=== PATIENT | female | born 1970 | race Caucasian/White ===

== ENCOUNTER 2018-07-29 06:01 | Day surgery (SDC) | payer OTHER ==
[2018-07-28 12:30] VITALS: BMI 33.2
[2018-07-29] VITALS (19 sets, daily range): BP systolic 90–139; BP diastolic 53–83; PULSE 64–101; RESP 12–24; Ht 157.5 cm; Wt 82.3 kg
[~2018-07-29] VITALS: Ht 157.5 cm; Wt 82.3 kg
[~2018-07-29 06:01] MED LIST: CEFAZOLIN 1 GM/50 ML (PMX) 50 ML IVPB ONE
--- NOTE | 2018-07-29 07:11 | HPN ---
Date/Time of Note Date/Time of Note DATE: 07/29/18 TIME: 07:10 Interval H&P Admission Note Pt. seen H&P reviewed: No system changes OSCAR SANTOS DPM Jul 29, 2018 07:11
--- NOTE | 2018-07-29 07:21 | HPN ---
Date/Time of Note Date/Time of Note DATE: 07/29/18 TIME: 07:21 Interval H&P Admission Note Pt. seen H&P reviewed: No system changes OSCAR SANTOS DPM Jul 29, 2018 07:21
[2018-07-29] MEDS ORDERED: LIDOCAINE 2% (MDV) 20 ML INJ ONE (07:30)
[2018-07-29] MEDS ORDERED: BUPIVACAINE 0.5% (SDV) 30 ML INJ ONE (07:30)
[2018-07-29] MEDS ORDERED: DEXAMETHASONE 4 MG/ML 1 ML INJ ONE (07:30)
--- NOTE | 2018-07-29 07:37 | PREAC ---
Date/Time of Note Date/Time of Note DATE: 07/29/18 TIME: 07:33 Anesthesia Eval and Record Evaluation Time Pre-Procedure Interview DATE: 07/29/18 TIME: 07:33 Age 48 Sex female NPO: 8 hrs Preoperative diagnosis Left Foot Bunion Planned procedure Left Foot Bunionectomy Past Medical History Past Medical History: Includes Cardio: HTN Pulm: Asthma GI: Obesity Psych: Depression, Anxiety : : (4), Para: (3), Other (s/p Hysterectomy) Surgery & Anesthesia Issues No known issue Meds Anticoagulation: No Beta Alebrto within 24 hr: No Reason Beta Alberto not given: Pt. not on B-Alberto Meds reviewed: Yes Allergies Coded Allergies: carisoprodol (Verified Allergy, Mild, rash, 07/28/18) Allergies Reviewed: Yes Labs/Studies Labs Reviewed: Reviewed by anesthesiologist Result Diagram: 07/29/1838 07/29/1838 Laboratory Tests 07/29/18 06:38 test: N/A Studies: ECG (n/a), CXR (n/a) Pre-procedure Exam Last vitals Vital Signs Date Temp Pulse Resp B/P (MAP) Pulse Ox O2 O2 Flow FiO2 Time Delivery Rate 07/29/18 98.2 101 20 133/83 99 Room Air 06:30 (100) Airway: Adequate mouth opening, Adequate thyromental dist Mallampati: Mallampati II Teeth: Normal Lung: Normal Heart: Normal ASA Physical Status ASA physical status: 2 Emergency: None Planned Anesthetic General/MAC: LMA, MAC Planned Pain Management Parenteral pain med Pre-operative Attestations Prior to commencing anesthesia and surgery, the patient was re-evaluated, there was verification of: *The patient's identity *The results of appropriate recent lab work and preoperative vital signs *The above evaluation not changing prior to induction *Anesthetic plan, risk benefits, alternative and complications discussed with patient/family; questions answered; patient/family understands, accepts and wishes to proceed. HUEY DRUMMOND MD Jul 29, 2018 07:37
[2018-07-29] MEDS ORDERED: PROPOFOL 20 ML ONE (07:46)
[2018-07-29] MEDS ORDERED: CEFAZOLIN 1 GM INJ ONE (07:46)
[2018-07-29] MEDS ORDERED: MIDAZOLAM 1 MG/ML 2 ML INJ ONE (07:47)
[2018-07-29] MEDS ORDERED: FENTAnyl 50 MCG/ML VIAL ONE ×2 (07:47→08:14)
[2018-07-29] MEDS ORDERED: ONDANSETRON 4 MG INJ ONE (07:56)
[2018-07-29] MEDS ORDERED: METOCLOPRAMIDE 10 MG INJ ONE (07:56)
[2018-07-29] MEDS ORDERED: KETOROLAC 30 MG INJ ONE (07:56)
[2018-07-29] MEDS ORDERED: DEXAMETHASONE 4 MG/ML 5 ML INJ ONE (07:56)
[2018-07-29] MEDS ORDERED: ALBUTEROL 0.083% (NEB) 2.5 MG/3 ML AMP HHN PRN (08:00)
[2018-07-29] MEDS ORDERED: ONDANSETRON 4 MG INJ IV PRN (08:00)
[2018-07-29] MEDS ORDERED: EPHEDrine SULFATE 50 MG/5 ML SYG IV PRN (08:00)
[2018-07-29] MEDS ORDERED: MEPERIDINE 25 MG INJ IV PRN (08:00)
[2018-07-29] MEDS ORDERED: DIPHENHYDRAMINE 50 MG INJ IV PRN (08:00)
[2018-07-29] MEDS ORDERED: OXYCODONE/ACETAMINOPHEN (5/325) TAB PO PRN (08:00)
[2018-07-29] MEDS ORDERED: hydrALAzine 20 MG INJ IV PRN (08:00)
[2018-07-29] MEDS ORDERED: LABETALOL HCL 20MG INJ IV PRN (08:00)
[2018-07-29] MEDS ORDERED: HYDROmorphONE 1 MG/5 ML IV SYRINGE IV PRN ×3 (08:00)
[2018-07-29] MEDS ORDERED: METOCLOPRAMIDE 10 MG INJ IV PRN (08:00)
[2018-07-29] MEDS ORDERED: FENTAnyl 50 MCG/ML VIAL IV PRN ×3 (08:00)
[2018-07-29] MEDS ORDERED: LIDOCAINE 1% (MPF) 30 ML INJ INJ ONE (08:09)
[2018-07-29] MEDS ORDERED: EPHEDrine SULFATE 50 MG/5 ML SYG ONE (08:35)
--- NOTE | 2018-07-29 08:48 | SIPON ---
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
[2018-07-29] MEDS ORDERED: LIDOCAINE 1% (MPF) 30 ML INJ ONE (08:56)
--- NOTE | 2018-07-29 08:58 | PAC ---
Date/Time of Note Date/Time of Note DATE: 07/29/18 TIME: 08:58 Post-Anesthesia Notes Post-Anesthesia Note Last documented vital signs Vital Signs Date Temp Pulse Resp B/P (MAP) Pulse Ox O2 O2 Flow FiO2 Time Delivery Rate 07/29/18 98.2 101 20 133/83 99 Room Air 09:00 (100) Activity: WNL Respiratory function: WNL Cardiovascular function: WNL Mental status: Baseline Pain reasonably controlled: Yes Hydration appropriate: Yes Nausea/Vomiting absent: Yes HUEY DRUMMOND MD Jul 29, 2018 08:58
--- NOTE | 2018-07-29 12:24 | OPR ---
DATE OF OPERATION: 07/29/2018 PREOPERATIVE DIAGNOSIS: Bunion deformity, left foot. POSTOPERATIVE DIAGNOSIS: Bunion deformity, left foot. NAME OF OPERATION: Eric bunionectomy with screw fixation, left foot. DESCRIPTION OF PROCEDURE: The patient was brought to the OR and placed in the supine position on the operating room table. Anesthesia was achieved using MAC and local and 18 mL of lidocaine 1% plain. The ankle was then wrapped several times with Webril and tourniquet was placed over the Webril. The foot was then prepped and draped in the usual sterile fashion and tourniquet was inflated to 250 mmH g. Attention was then directed over the first MPJ. A 4 cm linear incision was made over the first MPJ. The incision was then deepened in the same plane using sharp and blunt dissection. Neurovascular st ructures were identified and retracted from the site. Next, capsular incision was made and the media l aspect of the first metatarsal bone was released from surrounding soft tissue and resected with a p ower saw. Next, attention was directed to the first interspace and adductor tendon was released. Ne xt, a stab incision was made through the capsule laterally and a fibular sesamoid was released from s urrounding soft tissues. Next, attention was directed back to the medial aspect of the first metatar edelmira bone. The Eric cut was made through the neck of the first metatarsal bone. The fragment was t hen translocated laterally and fixated with a 3.0 cannulated screw. Next, the remaining prominent fi rst metatarsal bone was resected with a power saw and then rasped smooth. The area was then flushed w ith copious amount of normal saline. Next capsule closure was obtained using 3-0 Vicryl, subcutaneou s closure using 4-0 Vicryl and skin closure using giuseppe. The surgical site was then infiltrated wi th 5 mL of 0.5% Marcaine plain and 1 mL of dexamethasone sodium phosphate. Surgical site was then co lopez with Adaptic, 4 x 4s and Kerlix in a compressive fashion. Next, the tourniquet was deflated an d immediate capillary refill was observed to all digits of the left foot. The patient tolerated anes thesia and procedure well and left the OR for recovery room with vital signs stable and neurovascular status intact. Dictated By: OSCAR SANTOS MD [place]/NTS Conf#: [id number] DID#: [id number]
== END 2018-07-29 10:43 | disposition home or self-care (01) ==
LOC: SDS 06:01
PROVIDERS: ATTEND Podiatrist
DX: M21.612 Bunion of left foot (principal); I10 Essential (primary) hypertension; J45.909 Unspecified asthma, uncomplicated; E66.9 Obesity, unspecified; Z68.32 Body mass index [BMI] 32.0-32.9, adult
CPT/HCPCS: 28296; 73620; 80053; 85025; 85610; 85730; 88304; 88311; J0690; J1100; J1885; J2250; J2405; J2765; J3010; L3260; Z7512; Z7610

== ENCOUNTER 2019-01-13 06:11 | Day surgery (SDC) | payer OTHER ==
[~2019-01-13] VITALS: Ht 157.5 cm; Wt 83.0 kg
[2019-01-13] VITALS (16 sets, daily range): BP systolic 113–131; BP diastolic 65–87; PULSE 70–80; RESP 13–21; Ht 157.5 cm; Wt 83.0 kg
[2019-01-13] MEDS ORDERED: FEXO180T61 PO (06:31)
[2019-01-13] MEDS ORDERED: BENZ200C68 PO (06:31)
[2019-01-13] MEDS ORDERED: FLUO60TA PO (06:31)
[2019-01-13] MEDS ORDERED: BENZ-5 PO (06:31)
[2019-01-13] MEDS ORDERED: MONT10TA24 PO (06:31)
[2019-01-13] MEDS ORDERED: TRAZ-111 PO (06:31)
[2019-01-13] MEDS ORDERED: GUAI-111 PO (06:31)
[2019-01-13] MEDS ORDERED: CARV3.1260 PO (06:31)
[2019-01-13] MEDS ORDERED: DEXAMETHASONE 4 MG/ML 1 ML INJ ONE (07:12)
[2019-01-13] MEDS ORDERED: BUPIVACAINE 0.5% (SDV) 30 ML INJ ONE (07:12)
--- NOTE | 2019-01-13 07:15 | HPN ---
Date/Time of Note Date/Time of Note DATE: 01/13/19 TIME: 07:15 Interval H&P Admission Note Pt. seen H&P reviewed: No system changes OSCAR SANTOS DPM Jan 13, 2019 07:15
--- NOTE | 2019-01-13 07:44 | PREAC ---
Date/Time of Note Date/Time of Note DATE: 01/13/19 TIME: 07:41 Anesthesia Eval and Record Evaluation Time Pre-Procedure Interview DATE: 01/13/19 TIME: 07:41 Age 48 Sex female NPO: 8 hrs Preoperative diagnosis RT foot Bunion Planned procedure Rt foot Bunionectomy Past Medical History Past Medical History: Includes Cardio: HTN, Dyslipidemia Pulm: Asthma GI: Morbid obesity Surgery & Anesthesia Issues No known issue Meds Anticoagulation: No Beta Alberto within 24 hr: No Reason Beta Alberto not given: Pt. not on B-Alberto Reported Medications Guaifenesin/Pseudoephedrne HCl (Mucinex D ER 600-60 mg Tablet) 1 Each Tab .er.12h, 1 EACH PO, TAB 01/13/19 Fexofenadine Hcl* (Izzy*) 180 Mg Tablet, 180 MG PO DAILY, #30 TAB 01/13/19 Fluoxetine Hcl (Fluoxetine Hcl) 60 Mg Tablet, 60 MG PO, TAB 01/13/19 Benzonatate* (Benzonatate*) 200 Mg Capsule, 200 MG PO BID, CAP 01/13/19 Benzonatate* (Benzonatate*) 100 Mg Capsule, 100 MG PO TID PRN for COUGH, CAP 01/13/19 Trazodone Hcl* (Trazodone Hcl*) 50 Mg Tablet, 50 MG PO TID, #90 TAB 01/13/19 Carvedilol* (Carvedilol*) 3.125 Mg Tablet, 3.125 MG PO BID, #60 TAB 01/13/19 Montelukast Sodium* (Montelukast Sodium*) 10 Mg Tablet, 10 MG PO QHS, #30 TAB 01/13/19 Meds reviewed: Yes Allergies Coded Allergies: carisoprodol (Verified Allergy, Mild, rash, 07/28/18) Allergies Reviewed: Yes Labs/Studies Labs Reviewed: Reviewed by anesthesiologist test: N/A Pre-procedure Exam Last vitals Vital Signs Date Temp Pulse Resp B/P (MAP) Pulse Ox O2 O2 Flow FiO2 Time Delivery Rate 01/13/19 97.0 78 18 125/87 Room Air 06:35 (100) Airway: Adequate mouth opening, Adequate thyromental dist Mallampati: Mallampati II Teeth: Normal Lung: Normal Heart: Normal ASA Physical Status ASA physical status: 3 Emergency: None Planned Anesthetic General/MAC: MAC Planned Pain Management Parenteral pain med, Local by surgeon Pre-operative Attestations Prior to commencing anesthesia and surgery, the patient was re-evaluated, there was verification of: *The patient's identity *The results of appropriate recent lab work and preoperative vital signs *The above evaluation not changing prior to induction *Anesthetic plan, risk benefits, alternative and complications discussed with patient/family; questions answered; patient/family understands, accepts and wishes to proceed. SUSHILA COTA MD Jan 13, 2019 07:44
[2019-01-13] MEDS ORDERED: LIDOCAINE 1% (MPF) 30 ML INJ ONE (07:49)
[2019-01-13] MEDS ORDERED: FENTAnyl 50 MCG/ML VIAL ONE ×2 (07:51→08:09)
[2019-01-13] MEDS ORDERED: MIDAZOLAM 1 MG/ML 2 ML INJ ONE (07:51)
[2019-01-13] MEDS ORDERED: CEFAZOLIN 1 GM INJ ONE (08:26)
[2019-01-13] MEDS ORDERED: LIDOCAINE 2% (SDV) 5 ML INJ ONE (08:26)
[2019-01-13] MEDS ORDERED: PROPOFOL 20 ML ONE (08:26)
[2019-01-13] MEDS ORDERED: ONDANSETRON 4 MG INJ ONE (08:27)
--- NOTE | 2019-01-13 08:46 | SIPON ---
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
--- NOTE | 2019-01-13 08:54 | PAC ---
Date/Time of Note Date/Time of Note DATE: 01/13/19 TIME: 08:54 Post-Anesthesia Notes Post-Anesthesia Note Last documented vital signs Vital Signs Date Temp Pulse Resp B/P (MAP) Pulse Ox O2 O2 Flow FiO2 Time Delivery Rate 01/13/19 97.0 78 18 125/87 Room Air 06:35 (100) Activity: WNL Respiratory function: WNL Cardiovascular function: WNL Mental status: Baseline Pain reasonably controlled: Yes Hydration appropriate: Yes Nausea/Vomiting absent: Yes Comments BP:126/67, P:86, Spo2:100%, T:98,8 SUSHILA COTA MD Jan 13, 2019 08:54
[2019-01-13] MEDS ORDERED: FENTAnyl 50 MCG/ML VIAL IV PRN (09:00)
[2019-01-13] MEDS ORDERED: LABETALOL HCL 20MG INJ IV PRN (09:00)
[2019-01-13] MEDS ORDERED: HYDROmorphONE 1 MG/5 ML IV SYRINGE IV PRN ×2 (09:00)
[2019-01-13] MEDS ORDERED: ALBUTEROL 0.083% (NEB) 2.5 MG/3 ML AMP HHN PRN (09:00)
[2019-01-13] MEDS ORDERED: KETOROLAC 30 MG INJ IV PRN (09:00)
[2019-01-13] MEDS ORDERED: hydrALAzine 20 MG INJ IV PRN (09:00)
[2019-01-13] MEDS ORDERED: MEPERIDINE 25 MG INJ IV PRN (09:00)
[2019-01-13] MEDS ORDERED: ONDANSETRON 4 MG INJ IV PRN (09:00)
[2019-01-13] MEDS ORDERED: DIPHENHYDRAMINE 50 MG INJ IV PRN (09:00)
[2019-01-13] MEDS ORDERED: METOCLOPRAMIDE 10 MG INJ IV PRN (09:00)
--- NOTE | 2019-01-13 11:48 | OPR ---
DATE OF OPERATION: 01/13/2019 PREOPERATIVE DIAGNOSIS: Bunion, right foot. POSTOPERATIVE DIAGNOSIS: Bunion, right foot. PROCEDURE: Bunionectomy of right foot. DESCRIPTION OF PROCEDURE: The patient was brought to the OR and placed in the supine position on the operating room table. Anesthesia was achieved using 20 mL of lidocaine 1% plain. The ankle was the n wrapped several times with Webril and tourniquet was placed over the Webril. The foot was then pre pped and draped in the usual sterile fashion and the tourniquet was inflated to 250 mmHg. Attention was then directed over the first MPJ dorsally. A 4 cm linear incision was made over the fi rst MPJ. The incision was deepened in the same plane using sharp and blunt dissection. Vital struct ures were retracted from the surgical site. Next, capsular incision was made and then the head of th e first metatarsal bone was released and then resected medially with a power saw. Next, attention wa s directed to the first interspace where the conjoint adductor tendon was released. A fibular sesamo id was released from surrounding soft tissues. After adequate release. The area was flushed with no rmal saline and capsular closure was obtained using 3-0 Vicryl, subcutaneous closure, 4-0 Vicryl and skin closure using 4-0 Monocryl sutures in a simple interrupted fashion. The surgical site was then infiltrated with 4 mL of 0.5% Marcaine plain and 1 mL dexamethasone sodium phosphate. The patient to lerated anesthesia and procedure well and left the OR for recovery room with vital signs stable and n eurovascular status intact. Dictated By: OSCAR PATINO/GER Conf#: [id number] DID#: [id number]
== END 2019-01-13 10:35 | disposition home or self-care (01) ==
LOC: SDS 06:11
PROVIDERS: ATTEND Podiatrist
DX: M21.611 Bunion of right foot (principal); I10 Essential (primary) hypertension; J45.909 Unspecified asthma, uncomplicated; E78.5 Hyperlipidemia, unspecified; E66.01 Morbid (severe) obesity due to excess calories; Z68.33 Body mass index [BMI] 33.0-33.9, adult
CPT/HCPCS: 28292; 88304; 88311; J0690; J1100; J2250; J2405; J3010; Z7512; Z7610